=== PATIENT | female | born 1985 | race Caucasian/White ===

== ENCOUNTER 2019-02-12 13:04 | Emergency (ER) | payer OTHER ==
[~2019-02-12] VITALS: Ht 162.6 cm; Wt 75.7 kg
--- NOTE | 2019-02-12 14:12 | RAD ---
EXAM: CHEST 2 VIEWS. HISTORY: Cough. COMPARISON: None. FINDINGS: Frontal and lateral views of the chest are obtained. There are no confluent infiltrates. There is no pneumothorax or pleural effusion. The heart is not enlarged. There is a mild thoracic dextrocurvature. IMPRESSION: 1. No confluent infiltrates. Electronically signed by: Queta Massey MD (02/12/2019 2:09 PM) [facility]
[2019-02-12] MEDS ORDERED: ALBU2.5V8 IH (14:19)
[2019-02-12] MEDS ORDERED: PRED15SO46 PO (14:19)
--- NOTE | 2019-02-12 14:20 | PHYS DOC ---
Past History Past Medical History: No Pertinent History Past Surgical History: Cholecystectomy, , Other Additional Past Surgical Histo: D & C , and multiple toe surgeries Alcohol Use: None Drug Use: None Adult General Chief Complaint Chief Complaint: COUGH [facility] HPI 33-year-old female presents with 3 week history of cough. It is nonproductive. She has had intermittent fevers, but no fever the last 2 days. The cough is worse with lying down. No history of asthma or GERD. She was seen in the primary care clinic and diagnosed with bronchitis about a week ago. She is not feeling any better and is wondering if there is anything else that she can try. Her was recently diagnosed with bronchitis and given steroids and an albuterol inhaler. She is in the emergency room with her 6-year-old son with similar symptoms. Review of Systems Review of Systems Constitutional: Denies fever or chills [] Eyes: Denies change in visual acuity, redness, or eye pain [] HENT: Denies nasal congestion or sore throat [] Respiratory: cough without shortness of breath [] Cardiovascular: No additional information not addressed in HPI [] GI: Denies abdominal pain, nausea, vomiting, bloody stools or diarrhea [] : Denies dysuria or hematuria [] Musculoskeletal: Denies back pain or joint pain [] Integument: Denies rash or skin lesions [] Neurologic: Denies headache, focal weakness or sensory changes [] Endocrine: Denies polyuria or polydipsia [] All other systems were reviewed and found to be within normal limits, except as documented in this note. Physical Exam Physical Exam Constitutional: Well developed, well nourished, no acute distress, non-toxic appearance. [] HENT: Normocephalic, atraumatic, bilateral external ears normal, oropharynx moist, no oral exudates, nose normal. [] Eyes: PERRLA, EOMI, conjunctiva normal, no discharge. [] Neck: Normal range of motion, no tenderness, supple, no stridor. [] Cardiovascular:Heart rate regular rhythm, no murmur [] Lungs & Thorax: Bilateral breath sounds clear to auscultation [] Abdomen: Bowel sounds normal, soft, no tenderness, no masses, no pulsatile masses. [] Skin: Warm, dry, no erythema, no rash. [] Back: No tenderness, no CVA tenderness. [] Extremities: No tenderness, no cyanosis, no clubbing, ROM intact, no edema. [] Neurologic: Alert and oriented X 3, normal motor function, normal sensory function, no focal deficits noted. [] Psychologic: Affect normal, judgement normal, mood normal. [] Current Patient Data Vital Signs Vital Signs Date Time Temp Pulse Resp B/P (MAP) Pulse Ox O2 Delivery O2 Flow Rate FiO2 02/12/19 13:15 98.9 16 97 EKG EKG [] Radiology/Procedures Radiology/Procedures [] Impressions: EXAM: CHEST 2 VIEWS. HISTORY: Cough. COMPARISON: None. FINDINGS: Frontal and lateral views of the chest are obtained. There are no confluent infiltrates. There is no pneumothorax or pleural effusion. The heart is not enlarged. There is a mild thoracic dextrocurvature. IMPRESSION: 1. No confluent infiltrates. Electronically signed by: Queta Massey MD (02/12/2019 2:09 PM) [facility] DICTATED AND SIGNED BY: MIO MASSEY MD DATE: 02/12/19 1409 CC: ANG VALENCIA DO; DARA RICHARDS DO ~ Course & Med Decision Making Course & Med Decision Making Pertinent Labs and Imaging studies reviewed. (See chart for details) The patient appears to have a viral illness and possibly bronchitis. Her chest x-rays negative for pneumonia. We'll treat the patient with a prescription for prednisone as well as an albuterol inhaler with spacer. She will follow-up with her primary care physician as needed. She is stable for discharge at this time. [] Dragon Disclaimer Dragon Disclaimer This electronic medical record was generated, in whole or in part, using a voice recognition dictation system. Departure Departure: Impression: Primary Impression: Viral URI with cough Disposition: HOME, SELF-CARE Condition: STABLE Referrals: DARA RICHARDS DO (PCP) Patient Instructions: Upper Respiratory Infection, Adult, [facility] Scripts Prednisone (PREDNISONE) 20 Mg Tablet 3 TAB PO DAILY for respiratory infection for 3 Days, #9 TAB Prov: ANG VALENCIA DO 02/12/19 Azithromycin (AZITHROMYCIN TABLET) 250 Mg Tablet 1 PKG PO UD for pneumonia prophylaxis for 5 Days, #6 TAB 0 Refills 2 the first day followed by 1 for days 2-5 Prov: ANG VALENCIA DO 02/12/19 Albuterol Sulfate (PROAIR HFA INHALER) 8.5 Gm Hfa.aer.ad 2 PUFF IH PRN Q4-6HRS PRN for wheezing, #1 INHALER 0 Refills Prov: ANG VALENCIA DO 02/12/19 ANG VALENCIA DO Feb 12, 2019 14:20
[2019-02-12] MEDS ORDERED: AZIT250T6 PO (14:41)
[2019-02-12] MEDS ORDERED: PRED20TA PO (14:41)
== END 2019-02-12 15:28 | disposition home or self-care (01) ==
LOC: ER 13:04
DX: J06.9 Acute upper respiratory infection, unspecified (principal); B97.89 Other viral agents as the cause of diseases classified elsewhere
CPT/HCPCS: 71046; 99284

== ENCOUNTER 2019-03-04 13:19 | Emergency (ER) | payer OTHER ==
[~2019-03-04] VITALS: Ht 162.6 cm; Wt 72.0 kg
[~2019-03-04 13:19] MED LIST: ALBU2.5V8 IH; AZIT250T6 PO; PRED15SO46 PO; PRED20TA PO
[2019-03-04 13:25] VITALS: BP 123/105
[2019-03-04] MEDS ORDERED: IV NORMAL SALINE 1,000ML 1,000 ML IV SCH (13:38)
[2019-03-04] MEDS ORDERED: KETOROLAC 30 MG/ML VIAL. IVP ONE (13:45)
[2019-03-04] MEDS ORDERED: IPRATRPIUM/ALBUTEROL 0.5/2.5MG 3 ML NEBU. NEB ONE (13:45)
--- NOTE | 2019-03-04 13:54 | PHYS DOC ---
Past History Past Medical History: No Pertinent History Past Surgical History: Cholecystectomy, , Other Additional Past Surgical Histo: D & C , and multiple toe surgeries Alcohol Use: None Drug Use: None Adult General Chief Complaint Chief Complaint: MULTIPLE COMPLAINTS HPI HPI Patient is a 33-year-old female who presents with complaint of symptoms of upper respiratory infection for the last couple of months. Patient states that she has had continuous cough since onset and states that initially it had been productive but now is just a dry cough that keeps her up. She states that she frequently coughs until she throws up. She denies any actual nausea. She also indicates that over the last week she has developed a fever and states that it has been running up to 102 except for when she takes Tylenol or ibuprofen for the fever. She does complain of body aches and chills and states that the worst of her pain is more in her diaphragm from all the coughing. She denies any lower extremity pain or swelling. She states that she is having difficulty sleeping due to the amount of coughing.[] Review of Systems Review of Systems Constitutional: Positive fever and chills [] HENT: Denies nasal congestion or sore throat [] Respiratory: Positive cough without shortness of breath [] Cardiovascular: No additional information not addressed in HPI [] GI: Denies abdominal pain, nausea, vomiting, bloody stools or diarrhea [] Musculoskeletal: Positive body aches and chest wall pain [] Integument: Denies rash or skin lesions [] All other systems were reviewed and found to be within normal limits, except as documented in this note. Current Medications Current Medications Current Medications Medications (Trade) Dose Ordered Sig/[facility] Start Time Stop Time Status Last Admin Dose Admin Albuterol/ Ipratropium (Duoneb) 3 ml 1X ONCE 03/04/19 13:45 03/04/19 13:46 UNV Ketorolac Tromethamine (Toradol 30mg Vial) 30 mg 1X ONCE 03/04/19 13:45 03/04/19 13:46 UNV Sodium Chloride 1,000 ml @ 1,000 mls/hr Q1H 03/04/19 13:38 03/04/19 14:37 UNV Physical Exam Physical Exam Constitutional: Well developed, well nourished, no acute distress, non-toxic appearance. [] HENT: Normocephalic, atraumatic, bilateral external ears normal, oropharynx moist, no oral exudates, nose normal. [] Eyes: PERRLA, EOMI, conjunctiva normal, no discharge. [] Neck: Normal range of motion, no tenderness, supple, no stridor. [] Cardiovascular: Regular rate and rhythm[] Lungs & Thorax: Bilateral breath sounds clear to auscultation [] Abdomen: Bowel sounds normal, soft, no tenderness. [] Skin: Warm, dry, no erythema, no rash. [] Extremities: No tenderness, no cyanosis, no clubbing, ROM intact. [] Neurologic: Alert and oriented X 3, no focal deficits noted. [] EKG EKG [] Radiology/Procedures Radiology/Procedures [] Impressions: PROCEDURE: CHEST PA & LATERAL EXAM: CHEST 2 VIEWS. HISTORY: Cough and fever. COMPARISON: 02/12/2019. FINDINGS: Frontal and lateral views of the chest are obtained. There are no confluent infiltrates. There is no pneumothorax or pleural effusion. The heart is not enlarged. Cholecystectomy clips are noted. IMPRESSION: 1. No confluent infiltrates. Electronically signed by: Queta Massey MD (03/04/2019 2:23 PM) [facility] Course & Med Decision Making Course & Med Decision Making Pertinent Labs and Imaging studies reviewed. (See chart for details) [] Dragon Disclaimer Dragon Disclaimer This electronic medical record was generated, in whole or in part, using a voice recognition dictation system. Departure Departure: Impression: Primary Impression: Bronchitis Additional Impression: Fever Disposition: 01 HOME, SELF-CARE Condition: STABLE Referrals: DARA RICHARDS DO (PCP) Patient Instructions: Acute Bronchitis, Fever Scripts Benzonatate (TESSALON PERLE) 100 Mg Capsule 1 CAP PO TID PRN for COUGH, #21 CAP Prov: BLAKE SOL Jr. DO 03/04/19 Amoxicillin/Potassium Clav (AUGMENTIN 875-125 TABLET) 1 Each Tablet 1 TAB PO BID for infection for 10 Days, #20 TAB 0 Refills Prov: BLAKE SOL Jr. DO 03/04/19 Problem Qualifiers Additional Impression: Fever Fever type: unspecified Qualified Codes: R50.9 - Fever, unspecified BLAKE SOL Jr. DO Mar 04, 2019 13:54
[2019-03-04 14:00] LABS: BASO % 0 % (0-3); EOS % 0 % (0-3); HEMATOCRIT 39.6 % (36.0-47.0); HEMOGLOBIN 13.1 g/dL (12.0-15.5); LYMPH # 0.9 x10^3/uL (1.0-4.8); LYMPH % 11 % (24-48); MEAN CORPUSCULAR HEMOGLOBIN 29 pg (25-35); MEAN CORPUSCULAR HGB CONC 33 g/dL (31-37); MEAN CORPUSCULAR VOLUME 86 fL (79-100); MONO # 0.9 x10^3/uL (0.0-1.1); MONO % 10 % (0-9); NEUT # 6.6 x10^3uL (1.8-7.7); NEUT % 78 % (31-73); PLATELET COUNT 232 x10^3/uL (140-400); RED BLOOD COUNT 4.59 x10^6/uL (3.50-5.40); RED CELL DISTRIBUTION WIDTH 13.9 % (11.5-14.5); WHITE BLOOD COUNT 8.5 x10^3/uL (4.0-11.0)
[2019-03-04 14:14] LABS: ALBUMIN 3.7 g/dL (3.4-5.0); ALBUMIN/GLOBULIN RATIO 0.9 (1.0-1.7); CALCIUM 8.7 mg/dL (8.5-10.1); CREATININE 0.7 mg/dL (0.6-1.0); GFR 95.2; POTASSIUM 3.1 mmol/L (3.5-5.1); TOTAL BILIRUBIN 0.7 mg/dL (0.2-1.0)
[2019-03-04 14:25] LABS: INFLUENZA A PATIENT NEGATIVE (NEGATIVE); INFLUENZA B PATIENT NEGATIVE (NEGATIVE)
--- NOTE | 2019-03-04 14:26 | RAD ---
EXAM: CHEST 2 VIEWS. HISTORY: Cough and fever. COMPARISON: 02/12/2019. FINDINGS: Frontal and lateral views of the chest are obtained. There are no confluent infiltrates. There is no pneumothorax or pleural effusion. The heart is not enlarged. Cholecystectomy clips are noted. IMPRESSION: 1. No confluent infiltrates. Electronically signed by: Queta Massey MD (03/04/2019 2:23 PM) [facility]
[2019-03-04] MEDS ORDERED: POTASSIUM CHLORIDE 20 MEQ TABLET.ER. PO ONE (15:00)
[2019-03-04 16:21] LABS: BILIRUBIN,URINE NEG (NEG); CLARITY,URINE CLEAR; COLOR,URINE YELLOW; GLUCOSE,URINE NEG (NEG); NITRITE,URINE NEG (NEG); UROBILINOGEN,URINE 0.2 mg/dL (0.2 mg/dL)
[2019-03-04 16:22] LABS: BACTERIA,URINE FEW /HPF (0-FEW); SQUAMOUS EPITHELIAL CELL,UR FEW /LPF
[2019-03-04] MEDS ORDERED: BENZ100C PO (16:40)
[2019-03-04] MEDS ORDERED: AMOX1TAB61 PO (16:40)
== END 2019-03-04 17:00 | disposition home or self-care (01) ==
LOC: ER 13:19
DX: J40 Bronchitis, not specified as acute or chronic (principal)
CPT/HCPCS: 36415; 71046; 80053; 81001; 83605; 85025; 85379; 87040; 87804; 94640; 96374; 99285; J1885; J7620; J7030